=== PATIENT | male | born 1965 | race Caucasian/White ===

== ENCOUNTER 2019-09-20 10:25 | Emergency (ER) | payer OTHER ==
[~2019-09-20] VITALS: Ht 157.5 cm; Wt 68.0 kg
[2019-09-20 10:39] VITALS: BP 129/84
[2019-09-20] MEDS ORDERED: LIDOCAINE/EPI 1% 1:100000 20 ML VIAL INJ ONE (12:10)
[2019-09-20] MEDS ORDERED: IBUPROFEN 600 MG TAB PO ONE (12:15)
[2019-09-20 12:51] VITALS: BP 129/84
== END 2019-09-20 12:51 | disposition home or self-care (01) ==
LOC: MED 10:25
DX: S91.341A Puncture wound with foreign body, right foot, initial encounter (principal); W45.8XXA Other foreign body or object entering through skin, initial encounter; Y93.89 Activity, other specified; Y92.89 Other specified places as the place of occurrence of the external cause; Y99.0 Civilian activity done for income or pay
CPT/HCPCS: 10120; 73630; 90471; 90715; 99285; J2001; Q0092; 99283

== ENCOUNTER 2019-09-22 12:25 | Emergency (ER) | payer OTHER ==
[~2019-09-22] VITALS: Ht 157.5 cm; Wt 68.5 kg
[2019-09-22 12:34] VITALS: BP 125/68
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
--- NOTE | 2019-09-22 12:56 | NUR ---
Dr. Gonzales is evaluating the patient at bedside.
[2019-09-22 13:07] VITALS: BP 125/68
--- NOTE | 2019-09-22 13:08 | NUR ---
Patient discharged with v/s stable. Written and verbal after care instructions given and explained. Patient verbalized understanding. Ambulatory with steady gait. All questions addressed prior to discharge. Advised to follow up with PMD.
== END 2019-09-22 13:08 | disposition home or self-care (01) ==
LOC: MED 12:25
DX: M79.671 Pain in right foot (principal); Z48.00 Encounter for change or removal of nonsurgical wound dressing
CPT/HCPCS: 99283